=== PATIENT | female | born 1975 | race Caucasian/White ===

== ENCOUNTER 2017-02-11 07:30 | Observation (INO) | payer OTHER ==
[~2017-02-11] VITALS: Ht 172.7 cm; Wt 79.4 kg
[~2017-02-11 07:30] MED LIST: IBUP-2070 PO; PREN1TAB52 PO
[2017-02-11 08:06] VITALS: BP 108/66
== END 2017-02-11 08:45 | disposition home or self-care (01) ==
LOC: 4S 07:30
PROVIDERS: ADMIT Obstetrics & Gynecology; ATTEND Obstetrics & Gynecology
DX: O09.513 Supervision of elderly primigravida, third trimester (principal); Z3A.37 37 weeks gestation of pregnancy
CPT/HCPCS: 59025; G0378

== ENCOUNTER 2017-02-18 11:22 | Inpatient (IN) | payer OTHER ==
[~2017-02-18] VITALS: Ht 172.7 cm; Wt 80.3 kg
[2017-02-21] MEDS ORDERED: RINGERS SOLUTION,LACTATED 1,000 ML IV ONE (10:27)
[2017-02-21] MEDS ORDERED: CITRIC ACID/SODIUM CITRATE 30 ML SOLUTION UDCUP PO ONE (10:30)
[2017-02-21] MEDS ORDERED: METOCLOPRAMIDE HCL 5 MG/ML 2 ML VIAL IVP ONE (10:30)
[2017-02-21 10:49] VITALS: BP 113/65
[2017-02-21 11:28] LABS: BASOPHILS # (AUTO) 0.05 K/uL (0.00-0.20); BASOPHILS % (AUTO) 0.7 % (0.0-2.0); EOSINOPHILS % (AUTO) 1.42 % (1.0-6.0); HEMOGLOBIN 11.4 g/dL (12.0-16.0); LYMPHOCYTES # (AUTO) 1.4 K/uL (1.0-4.8); LYMPHOCYTES % (AUTO) 20.7 % (22.0-44.0); MEAN CORPUSCULAR HEMOGLOBIN 31.7 pg (26.0-34.0); MEAN CORPUSCULAR HGB CONC 33.6 G/dL (31.0-37.0); MEAN CORPUSCULAR VOLUME 94 fL (80-100); MONOCYTES # (AUTO) 0.4 K/uL (0.1-1.0); MONOCYTES % (AUTO) 5.6 % (2.0-9.0); NEUTROPHILS # (AUTO) 4.8 K/uL (1.8-7.7); NEUTROPHILS % (AUTO) 71.6 % (40.0-70.0); PLATELET COUNT (AUTO) 143 K/uL (150-450); RED CELL DISTRIBUTION WIDTH 16.1 % (11.5-14.5); WHITE BLOOD COUNT (AUTO) 6.7 K/uL (4.5-11.0)
[2017-02-21] MEDS ORDERED: OXYTOCIN 10 UNITS/ML VIAL IM ONE (12:00)
[2017-02-21] MEDS ORDERED: PHENYLEPHRINE HCL 10 MG/ML VIAL IVP ONE (12:00)
[2017-02-21] MEDS ORDERED: MORPHINE SULFATE/PF 0.5 MG/ML 10 ML AMP ONE (12:29)
[2017-02-21] MEDS ORDERED: FentaNYL CITRATE-PF 100 MCG/2 ML VIAL ONE (12:29)
[2017-02-21] MEDS ORDERED: CLINDAMYCIN 900 MG/D5% WATER 50 ML IV ONE (12:42)
[2017-02-21] MEDS ORDERED: MORPHINE SULFATE 2 MG/ML SYRINGE IVP PRN ×2 (13:15)
[2017-02-21] MEDS ORDERED: NALBUPHINE HCL 10 MG/ML VIAL IVP PRN ×3 (13:15)
[2017-02-21] MEDS ORDERED: FentaNYL CITRATE-PF 100 MCG/2 ML VIAL IVP PRN (13:15)
[2017-02-21] MEDS ORDERED: MORPHINE SULFATE 10 MG/ML SYRINGE IVP PRN (13:15)
[2017-02-21] MEDS ORDERED: NALOXONE HCL 0.4 MG/ML VIAL IVP PRN (13:15)
[2017-02-21] MEDS ORDERED: DiphenhydrAMINE HCL 50 MG/ML VIAL IVP PRN ×2 (13:15)
[2017-02-21] MEDS ORDERED: MEPERIDINE-PF 25 MG/ML SYRINGE IVP PRN (13:15)
[2017-02-21] MEDS ORDERED: PROMETHAZINE HCL 12.5 MG in SODIUM CHLORIDE 0.9% 50 ML IV PRN (13:15)
[2017-02-21] MEDS ORDERED: ONDANSETRON HCL 4 MG/2 ML VIAL IVP PRN ×2 (13:15)
[2017-02-21] MEDS ORDERED: ACETAMINOPHEN/CODEINE 300-30 MG TABLET PO PRN ×2 (13:45)
[2017-02-21] MEDS ORDERED: LANOLIN 7 GM OINTMENT TP PRN (13:45)
[2017-02-21] MEDS: DEXTROSE 5%-0.45% SODIUM CHL 1,000 ML IV SCH ×3 (15:46→23:14)
[2017-02-21] MEDS: FentaNYL CITRATE-PF 100 MCG/2 ML VIAL IVP PRN ×2 (18:13→23:26)
[2017-02-21] MEDS ORDERED: OXYGEN THERAPY IH SCH ×3 (20:00)
[2017-02-22] MEDS: DEXTROSE 5%-0.45% SODIUM CHL 1,000 ML IV SCH (03:16)
[2017-02-22] MEDS: FentaNYL CITRATE-PF 100 MCG/2 ML VIAL IVP PRN (05:45)
[2017-02-22] MEDS: IBUPROFEN 800 MG TABLET PO SCH ×3 (08:12→19:41)
[2017-02-22] MEDS: MAGNESIUM HYDROXIDE SUSPENSION 30 ML UDCUP PO SCH ×2 (08:55→21:16)
[2017-02-23] MEDS: IBUPROFEN 800 MG TABLET PO SCH ×4 (01:54→20:21)
[2017-02-23] MEDS: MAGNESIUM HYDROXIDE SUSPENSION 30 ML UDCUP PO SCH ×2 (08:39→21:00)
[2017-02-23] MEDS ORDERED: GUM MASTIC/STORAX/MSAL/ALCOHOL LIQUID 0.67 ML VIAL TP ONE (10:10)
[2017-02-24] MEDS: IBUPROFEN 800 MG TABLET PO SCH ×2 (02:56→08:58)
[2017-02-24] MEDS ORDERED: IBUP-2070 PO (09:21)
[2017-02-24] MEDS ORDERED: ACET1TAB12 PO (09:23)
[2017-02-24] MEDS ORDERED: DSS100 PO (09:24)
== END 2017-02-24 13:00 | disposition home or self-care (01) | DRG 766 ==
LOC: OBSVTOIN 02-21 10:23 → 4S 02-21 10:23
PROVIDERS: ADMIT Obstetrics & Gynecology; ATTEND Obstetrics & Gynecology
PROC: 10D00Z1 Extraction of Products of Conception, Low, Open Approach (ICD-10-PCS; principal; 2017-02-21)
DX: O34.211 Maternal care for low transverse scar from previous cesarean delivery (principal); Z37.0 Single live birth; Z3A.40 40 weeks gestation of pregnancy; O09.523 Supervision of elderly multigravida, third trimester; Z88.0 Allergy status to penicillin
CPT/HCPCS: 86850; 86900; 86901; 87081; J2274; J2370; J2590; J2765; J3010; J3490; J7120